=== PATIENT | male | born 1990 | race Caucasian/White ===

== ENCOUNTER 2017-10-26 19:52 | Emergency (ER) | payer MEDICAID, OTHER ==
[~2017-10-26] VITALS: Ht 190.5 cm; Wt 83.1 kg
[~2017-10-26 19:52] MED LIST: CEPH-367
[2017-10-26] MEDS ORDERED: HYDROmorphone 1 MG/ML, 1ML IVPush PRN (20:30)
[2017-10-26] MEDS ORDERED: ONDANSETRON 2MG/ML, 2ML IVPush ONE (20:30)
[2017-10-26] MEDS ORDERED: SODIUM CHLORIDE 0.9% 1,000ML IVBOLUS ONE (20:30)
[2017-10-26] MEDS ORDERED: SODIUM CHLORIDE FLUSH 10ML SYR IVF ONE (20:30)
[2017-10-26] MEDS ORDERED: OMNIPAQUE 350 MG/ML, 100ML BOTTLE ONE (20:32)
[2017-10-26] MEDS ORDERED: ONDANSETRON 2MG/ML, 2ML ONE (20:33)
[2017-10-26] MEDS ORDERED: HYDROmorphone 2 MG/ML, 1ML ONE ×2 (20:33→21:36)
[2017-10-26 20:35] LABS: RAPID INFLUENZA A Negative (Negative); RAPID INFLUENZA B Negative (Negative)
[2017-10-26 20:47] LABS: HCT (SEDRATE) 46.9 % (39.2-51.8); MEAN CORPUSCULAR HEMOGLOBIN 30.5 pg (27.5-34.5); MEAN CORPUSCULAR HGB CONC 34.8 g/dL (33.2-36.2); MEAN CORPUSCULAR VOLUME 87.6 fL (81-97); MEAN PLATELET VOLUME 9.2 fL (7.4-10.4); PLATELET COUNT 185 x10^3/uL (130-400); RED BLOOD COUNT 5.35 x10^6/uL (4.38-5.82); RED CELL DISTRIBUTION WIDTH 14.5 % (9.4-14.8)
[2017-10-26 20:56] LABS: ALBUMIN 4.3 g/dL (3.4-5.0); ANION GAP 9 mmol/L (5-15); CALCIUM 8.7 mg/dL (8.5-10.1); CHLORIDE 106 mmol/L (98-107); CREATININE 1.32 mg/dL (0.7-1.3)
[2017-10-26 20:59] LABS: ALANINE AMINOTRANSFERASE 12 U/L (12-78); ALKALINE PHOSPHATASE 76 U/L (45-117); BILIRUBIN,TOTAL 0.9 mg/dL (0.2-1.0); TOTAL PROTEIN 7.8 g/dL (6.4-8.2)
[2017-10-26 21:15] LABS: BASOPHILS % (AUTO) 0 % (0-1); EOSINOPHILS % (AUTO) 0 % (1-7); LYMPHOCYTES # (AUTO) 0.23 x10^3/uL (1-3.4); LYMPHOCYTES % (AUTO) 5 % (22-44); MD SCAN; MONOCYTES # (AUTO) 0.01 x10^3/uL (0.2-0.8); MONOCYTES % (AUTO) 0 % (2-9); NEUTROPHILS # (AUTO) 4.21 x10^3/uL (1.8-6.8); NEUTROPHILS % (AUTO) 95 % (42-75)
[2017-10-26 21:26] LABS: SEDIMENTATION RATE 3 mm/hr (0-10)
[2017-10-26 22:11] LABS: MICROSCOPIC NOT IND
[2017-10-26 22:13] LABS: CULTURE INDICATED? NO
[2017-10-26 22:25] VITALS: BP 126/74
[2017-10-26] MEDS ORDERED: IBUPROFEN 200 MG TABLET ONE (22:28)
[2017-10-26] MEDS ORDERED: IBUPROFEN 200 MG TABLET PO ONE (22:30)
== END 2017-10-26 23:11 | disposition home or self-care (01) ==
LOC: ED 20:46
DX: M54.16 Radiculopathy, lumbar region (principal); R10.30 Lower abdominal pain, unspecified; R11.2 Nausea with vomiting, unspecified
CPT/HCPCS: 36415; 74177; 80053; 81003; 83690; 85025; 85651; 87400; 93005; 96361; 96374; 96375; 99285; J1170; J2405; J7030; Q9967

== ENCOUNTER 2017-11-11 16:22 | Emergency (ER) | payer MEDICAID ==
[~2017-11-11] VITALS: Ht 190.5 cm; Wt 83.0 kg
[2017-11-11 16:34] VITALS: BP 137/86
== END 2017-11-11 18:57 | disposition home or self-care (01) ==
LOC: ED 18:51
DX: S93.612A Sprain of tarsal ligament of left foot, initial encounter (principal); W19.XXXA Unspecified fall, initial encounter; Y93.55 Activity, bike riding; Y92.410 Unspecified street and highway as the place of occurrence of the external cause; Y99.8 Other external cause status
CPT/HCPCS: 99284

== ENCOUNTER 2018-02-12 00:31 | Emergency (ER) | payer MEDICAID ==
[~2018-02-12] VITALS: Ht 190.5 cm; Wt 78.5 kg
[2018-02-12 00:32] VITALS: BP 152/95
[2018-02-12] MEDS ORDERED: CLINDAMYCIN 300 MG CAPSULE ONE (02:42)
[2018-02-12] MEDS ORDERED: HYDROmorphone 1 MG/ML, 1ML ONE (02:42)
[2018-02-12] MEDS ORDERED: KETOROLAC 30 MG/1 ML ONE (02:42)
[2018-02-12] MEDS ORDERED: HYDROmorphone 1 MG/ML, 1ML IM ONE (03:00)
[2018-02-12] MEDS ORDERED: CLINDAMYCIN 300 MG CAPSULE PO ONE (03:00)
[2018-02-12] MEDS ORDERED: KETOROLAC 30 MG/1 ML IM ONE (03:00)
== END 2018-02-12 02:56 | disposition home or self-care (01) ==
LOC: ED 02:50
DX: K04.7 Periapical abscess without sinus (principal)
CPT/HCPCS: 96372; 99284; J1170; J1885